=== PATIENT | female | born 1995 | race Caucasian/White ===

== ENCOUNTER 2017-01-05 01:30 | Inpatient (IN) | payer MEDICAID ==
[~2017-01-05] VITALS: Ht 152.4 cm; Wt 58.2 kg
[2017-01-05] MEDS ORDERED: SODIUM CHLORIDE FLUSH 10ML SYR IVF ONE (02:30)
[2017-01-05] MEDS ORDERED: HYDROmorphone 1 MG/ML, 1ML IM PRN (02:30)
[2017-01-05] MEDS ORDERED: HYDROmorphone 2 MG/ML, 1ML ONE (02:43)
[2017-01-05 02:47] LABS: HEMATOCRIT 40.9 % (34.6-47.8); HEMOGLOBIN 13.2 g/dL (11.7-16.4); WHITE BLOOD COUNT 11.3 x10^3/uL (3.4-10)
[2017-01-05] MEDS ORDERED: HYDROmorphone 1 MG/ML, 1ML ONE (02:51)
[2017-01-05 03:00] LABS: ASPARTATE AMINO TRANSFERASE 15 U/L (15-37); BLOOD UREA NITROGEN 8 mg/dL (7-18)
[2017-01-05] MEDS ORDERED: OMNIPAQUE 350 MG/ML, 100ML BOTTLE ONE (03:00)
[2017-01-05] MEDS ORDERED: HYDROmorphone 1 MG/ML, 1ML IVPush PRN (03:00)
[2017-01-05] MEDS ORDERED: SODIUM CHLORIDE 0.9% 1,000ML IVBOLUS ONE (05:00)
[2017-01-05] MEDS ORDERED: METHYLNALTREXONE 12 MG/0.6 ML SQ ONE (06:30)
[2017-01-05 07:45] VITALS: BP 145/81
== END 2017-01-05 11:45 | disposition home or self-care (01) | DRG 389 ==
LOC: ED 03:57 → EDIP 06:21 → 4NOR 07:45
PROVIDERS: ADMIT Internal Medicine; ATTEND Internal Medicine
DX: K56.41 Fecal impaction (principal); K56.60 Unspecified intestinal obstruction; I38 Endocarditis, valve unspecified; F11.10 Opioid abuse, uncomplicated; F12.90 Cannabis use, unspecified, uncomplicated; F15.10 Other stimulant abuse, uncomplicated; F17.210 Nicotine dependence, cigarettes, uncomplicated; Z87.440 Personal history of urinary (tract) infections; F41.9 Anxiety disorder, unspecified
CPT/HCPCS: 36415; 71275; 74000; 74174; 80053; 83605; 83690; 84703; 85025; 85610; 85730; 93005; 96361; 96372; 96374; J1170; Q9967; J7030